=== PATIENT | male | born 1965 | race Caucasian/White ===

== ENCOUNTER → 2016-09-16 | Outpatient (CLI) | payer OTHER ==
[~2016-09-16] MED LIST: ALEVE220 MG PO; CYMBALTA PO; FLEXERIL 10 MG10 MG PO; NITROSTAT 0.40.4 MG SL; NORVASC 5 MG TAB5 MG PO; PROTONIX 40 MG40 M1 PO; RANITIDINE HCL150 MG PO; REQUIP0.25 MG PO; ZOFRAN4 MG PO
== END ==
LOC: RAD 14:17
DX: R07.9 Chest pain, unspecified (principal); K21.9 Gastro-esophageal reflux disease without esophagitis; R91.8 Other nonspecific abnormal finding of lung field
CPT/HCPCS: 71020

== ENCOUNTER → 2020-09-20 | Outpatient (CLI) | payer OTHER ==
[~2020-09-20] MED LIST changes: +COLCHICINE 0.60.6 MG PO; +MEDROL DOSEPAK 24 MG PO; +PERCOCET 5-3251 EACH PO; +PROTONIX40 MG PO
== END ==
LOC: EXRD 15:04
DX: M79.641 Pain in right hand (principal); M79.642 Pain in left hand; M11.20 Other chondrocalcinosis, unspecified site; Z87.39 Personal history of other diseases of the musculoskeletal system and connective tissue
CPT/HCPCS: 73130

== ENCOUNTER 2020-10-09 15:47 | Emergency (ER) | payer OTHER ==
[~2020-10-09 15:47] MED LIST changes: -COLCHICINE 0.60.6 MG PO; -MEDROL DOSEPAK 24 MG PO; -PROTONIX40 MG PO
[2020-10-09 17:13] LABS: HEMOGLOBIN 15.6 gm/dl (14.0-17.5); RED BLOOD COUNT 5.05 M/UL (4.20-5.50)
[2020-10-09 17:28] LABS: BUN/CREATININE RATIO 11 (0-10)
[2020-10-09] MEDS ORDERED: COLCHICINE 0.60.6 MG PO (17:47)
[2020-10-09] MEDS ORDERED: MEDROL DOSEPAK 24 MG PO (17:55)
== END 2020-10-09 18:00 | disposition home or self-care (01) ==
LOC: ER1 15:47
PROVIDERS: Physician Assistant
DX: M25.562 Pain in left knee (principal); I10 Essential (primary) hypertension; F17.290 Nicotine dependence, other tobacco product, uncomplicated; G89.29 Other chronic pain
CPT/HCPCS: 73562; 80053; 84550; 85025; 85652; 86140; 94760; 96374; 96375; 99283; J1100; J1885

== ENCOUNTER → 2020-10-30 | Outpatient (CLI) | payer OTHER ==
[~2020-10-30] MED LIST changes: +COLCHICINE 0.60.6 MG PO; +MEDROL DOSEPAK 24 MG PO; +PROTONIX40 MG PO
== END ==
LOC: KOH-I 09:45
DX: M43.06 Spondylolysis, lumbar region (principal); M47.816 Spondylosis without myelopathy or radiculopathy, lumbar region; M47.817 Spondylosis without myelopathy or radiculopathy, lumbosacral region
CPT/HCPCS: 72148

== ENCOUNTER 2020-11-30 15:19 | Emergency (ER) | payer OTHER ==
[~2020-11-30 15:19] MED LIST changes: -PROTONIX40 MG PO
[2020-11-30 18:31] LABS: HEMOGLOBIN 15.4 gm/dl (14.0-17.5); RED BLOOD COUNT 4.95 M/UL (4.20-5.50); WHITE BLOOD COUNT 7.1 K/UL (4.5-11.0)
[2020-11-30 18:48] LABS: BUN/CREATININE RATIO 11 (0-10)
[2020-11-30] MEDS ORDERED: PROTONIX40 MG PO (20:46)
[2020-11-30] MEDS ORDERED: MEDROL DOSEPAK 24 MG PO (20:55)
== END 2020-11-30 21:32 | disposition home or self-care (01) ==
LOC: ER1 15:19
PROVIDERS: Physician Assistant
DX: R10.13 Epigastric pain (principal); G89.29 Other chronic pain; M54.9 Dorsalgia, unspecified; F17.210 Nicotine dependence, cigarettes, uncomplicated
CPT/HCPCS: 80053; 82550; 82553; 83690; 83874; 84484; 85025; 96374; 96375; 99284; C9113; J1100; J2270; J2405; Q9967

== ENCOUNTER 2021-05-29 13:44 | Emergency (ER) | payer OTHER ==
[~2021-05-29 13:44] MED LIST changes: +PROTONIX40 MG PO
== END 2021-05-29 14:43 | disposition left against medical advice (07) ==
LOC: ER1 13:44
DX: Z53.21 Procedure and treatment not carried out due to patient leaving prior to being seen by health care provider (principal)

== ENCOUNTER 2021-12-31 12:41 | Emergency (ER) | payer OTHER ==
[2021-12-31 13:51] LABS: HEMOGLOBIN 16.6 gm/dl (14.0-17.5); RED BLOOD COUNT 5.34 M/UL (4.20-5.50); WHITE BLOOD COUNT 12.7 K/UL (4.5-11.0)
[2021-12-31 14:19] LABS: BUN/CREATININE RATIO 20 (0-10)
[2021-12-31] MEDS ORDERED: PROVENTIL HFA6.7 GM INH (19:00)
[2021-12-31] MEDS ORDERED: BENZONATATE100 MG PO (19:00)
== END 2021-12-31 19:48 | disposition home or self-care (01) ==
LOC: ER1 12:41
PROVIDERS: Physician Assistant
DX: U07.1 COVID-19 (principal); I10 Essential (primary) hypertension; J44.9 Chronic obstructive pulmonary disease, unspecified; K21.9 Gastro-esophageal reflux disease without esophagitis
CPT/HCPCS: 36600; 71045; 80053; 82550; 82553; 82803; 83880; 84484; 85025; 85379; 93005; 99285; Q9967